=== PATIENT | male | born 1945 | race Caucasian/White ===

== ENCOUNTER 2017-09-21 10:21 | Outpatient (CLI) | payer MEDICARE, BC ==
[~2017-09-21] VITALS: Ht 172.7 cm; Wt 88.5 kg
[~2017-09-21 10:21] MED LIST: ALD25T PO; AMIO200T57 PO; ASPI-1009 PO; ATOR40TA PO; COR3.125T PO; EFFIENT; FURO-150 PO; LOSA25TA96 PO
[2017-09-21 10:45] LABS: TOTAL HEMOGLOBIN 16.2 G/dl (14.0-18.0)
[2017-09-21] MEDS ORDERED: albuterol 2.5 MG/3 ML nebule NEB ONE (10:45)
== END 2017-09-21 23:59 | disposition home or self-care (01) ==
LOC: RT 10:21
PROVIDERS: ATTEND Internal Medicine Cardiovascular Disease
DX: Z48.812 Encounter for surgical aftercare following surgery on the circulatory system (principal); F17.210 Nicotine dependence, cigarettes, uncomplicated; Z79.899 Other long term (current) drug therapy; Z95.0 Presence of cardiac pacemaker
CPT/HCPCS: 71046; 85018; 94010; 94727; 94729